=== PATIENT | female | born 1960 | race Caucasian/White ===

== ENCOUNTER → 2017-05-24 | Emergency (ER) | payer OTHER ==
[~2017-05-24] VITALS: Ht 162.6 cm; Wt 60.8 kg
[~2017-05-24] MED LIST: CEPHALEXIN500 MG; FIORICET 50-321 EACH PO; NATURE THYROID; SYNTHROID137 MCG
== END | disposition home or self-care (01) ==
LOC: ER 22:21
DX: R55 Syncope and collapse (principal); E86.0 Dehydration; R11.2 Nausea with vomiting, unspecified

== ENCOUNTER → 2017-06-15 | Emergency (ER) | payer OTHER ==
[~2017-06-15] VITALS: Ht 160 cm; Wt 59.0 kg
== END | disposition home or self-care (01) ==
LOC: ER 16:25
DX: K29.70 Gastritis, unspecified, without bleeding (principal)

== ENCOUNTER 2019-03-25 10:30 | Outpatient (CLI) | payer OTHER | END 2019-03-25 10:44 | disposition home or self-care (01) | LOC: RAD 10:30 | DX: S22.39XA Fracture of one rib, unspecified side, initial encounter for closed fracture (principal) ==